=== PATIENT | female | born 1950 | race Caucasian/White ===

== ENCOUNTER → 2016-03-05 | Outpatient (CLI) | payer OTHER ==
[~2016-03-05] MED LIST: ASCO125C3 PO; ASPCH81X PO; ATOR-22 PO; B-CO1CAP5 PO; BIOTCAP2 PO; CHOL100027 PO; CHOL20007 PO; LISI-725 PO; METH1TAB66 PO; MULT-654 PO; MULT-839 PO; OXYB1TAB31 PO; PSYL48.59 PO; TROS20TA3 PO
== END | disposition home or self-care (01) ==
LOC: C.LABBFT 14:31
PROVIDERS: ATTEND Internal Medicine
DX: Z00.00 Encounter for general adult medical examination without abnormal findings (principal)

== ENCOUNTER → 2016-03-16 | Outpatient (CLI) | payer OTHER ==
[2016-03-16 22:13] LABS: INFLUENZA A PCR Neg for Influ A (NEG); INFLUENZA B PCR POS for Influ B (NEG)
== END | disposition home or self-care (01) ==
LOC: C.LABBFT 13:55
PROVIDERS: ATTEND Nurse Practitioner
DX: R68.89 Other general symptoms and signs (principal)

== ENCOUNTER → 2016-04-12 | Outpatient (CLI) | payer OTHER ==
[2016-04-12 17:28] LABS: URINE APPEARANCE CLEAR (CLEAR); URINE BILIRUBIN NEG (NEG); URINE COLOR DK YELLOW; URINE NITRITE NEG (NEG); URINE SPECIFIC GRAVITY 1.008 (1.000-1.030); UROBILINOGEN NEG (NEG)
[2016-04-12 17:30] LABS: MANUAL MICROSCOPIC REQUIRED? NO; REVIEW REQ? NO
== END | disposition home or self-care (01) ==
LOC: C.LABBFT 12:49
PROVIDERS: ATTEND Internal Medicine
DX: R39.9 Unspecified symptoms and signs involving the genitourinary system (principal)

== ENCOUNTER → 2016-04-22 | Outpatient (CLI) | payer OTHER | END | disposition home or self-care (01) | LOC: C.LAB1850 16:24 | PROVIDERS: ATTEND Psychiatry & Neurology Neurology | DX: R41.9 Unspecified symptoms and signs involving cognitive functions and awareness (principal) ==

== ENCOUNTER → 2016-04-29 | Outpatient (CLI) | payer OTHER ==
--- NOTE | 2016-04-29 09:10 | DIAGNOSTIC IMAGING REPORT ---
MRI OF THE BRAIN WITHOUT CONTRAST CLINICAL HISTORY: Difficulty processing information. History of colon cancer. COMPARISON STUDY: None. TECHNIQUE: Utilizing a 1.5 Alessandra magnet and dedicated coil, multiplanar, multiecho imaging of the brain was performed without IV contrast. FINDINGS: There are no areas of restricted diffusion. No acute intracranial hemorrhage, midline shift or mass effect is present. Brain volume is normal for age. Ventricular system is normal. Basilar cisterns are patent. There are no extra-axial collections. Flow-voids for the major intracranial vessels are present. No intracranial masses identified on this unenhanced exam. A few white matter T2 hyperintense foci are present. Calvarial signal is maintained. There is an air-fluid level within the right maxillary sinus. There is mild mucosal thickening of the maxillary sinuses. There is trace fluid within the right mastoid air cells. IMPRESSION: 1. No acute intracranial findings. 2. No intracranial masses on unenhanced exam. 3. Right maxillary sinus air-fluid level which may reflect acute sinusitis. 4. Minimal small vessel disease. Electronically signed by: Vince Garcia M.D. 04/29/2016 9:08 AM Dictated Date/Time: 04/29/2016 9:02 AM
== END | disposition home or self-care (01) ==
LOC: C.MRI 08:05
PROVIDERS: ATTEND Psychiatry & Neurology Neurology
DX: R41.9 Unspecified symptoms and signs involving cognitive functions and awareness (principal)

== ENCOUNTER → 2016-06-29 | Outpatient (CLI) | payer OTHER ==
--- NOTE | 2016-06-30 08:28 | MAMMOGRAPHY REPORT ---
BILATERAL DIGITAL SCREENING MAMMOGRAM WITH CAD: 06/29/2016 CLINICAL HISTORY: Routine screening. Patient has no complaints. TECHNIQUE: Bilateral CC and MLO views were obtained. Current study was also evaluated with a Comput er Aided Detection (CAD) system. COMPARISON: Comparison is made to exams dated: 12/31/2015 mammogram, 06/30/2015 mammogram, 06/30/2015 ul trasound biopsy, 06/23/2015 mammogram, 06/13/2015 mammogram, and 06/12/2014 mammogram - [facility]. BREAST COMPOSITION: There are scattered areas of fibroglandular density in both breasts. FINDINGS: The hub of a Port-A-Cath projects over the right superior pectoralis muscle on the MLO vie w. There is a stable ribbon shaped metallic biopsy marker within the right breast. No new suspicio us mass, architectural distortion or cluster of suspicious microcalcifications is seen. IMPRESSION: ACR BI-RADS CATEGORY 1: NEGATIVE There is no mammographic evidence of malignancy. A 1 year screening mammogram is recommended. The p atient will receive written notification of the results. Approximately 10% of breast cancers are not detected with mammography. A negative mammographic repor t should not delay biopsy if a clinically suggestive mass is present. Aye Guevara M.D. ay/:06/29/2016 15:45:41 Director Decision Support: Mira VALLE(Jessica)(M), [facility] letter sent: Normal 1/2 BI-RADS Code: ACR BI-RADS Category 1: Negative
== END | disposition home or self-care (01) ==
LOC: C.MAMM 10:44
PROVIDERS: ATTEND Obstetrics & Gynecology
DX: Z12.31 Encounter for screening mammogram for malignant neoplasm of breast (principal)

== ENCOUNTER → 2016-07-05 | Outpatient (CLI) | payer OTHER | END | disposition home or self-care (01) | LOC: C.PAPS 17:41 | PROVIDERS: ATTEND Obstetrics & Gynecology | DX: Z01.419 Encounter for gynecological examination (general) (routine) without abnormal findings (principal); R41.9 Unspecified symptoms and signs involving cognitive functions and awareness ==

== ENCOUNTER → 2016-09-01 | Day surgery (SDC) | payer OTHER ==
[2016-08-26 15:20] VITALS: BMI 28.0
[~2016-09-01] VITALS: Ht 170.2 cm; Wt 83.2 kg
[~2016-09-01] MED LIST changes: -CHOL100027 PO; +LIDOCAINE HCL 2% 2 ML VIAL (20MG/ML) ONE; -METH1TAB66 PO; -MULT-839 PO; -OXYB1TAB31 PO; +PROPOFOL IV EMULSION 10 MG/ML 20 ML VIAL IV ONE; +SODIUM CHLORIDE 0.9% 500ML 500 ML IV ONE
[2016-09-01 09:46] VITALS: Ht 170.2 cm; Wt 83.2 kg
--- NOTE | 2016-09-01 10:02 | Endo History and Physical ---
History & Physical Date of Service: Sep 01, 2016. Chief Complaint: History of colon cancer Referring Physician: Dr. Jones History of Present Illness 66 yo CF who presents for colonoscopy secondary to history of colon cancer. Past Medical History Cancer, Hypertension, Other Past Surgical History Hx Cardiac Surgery: No Hx Internal Defibrillator: No Hx Pacemaker: No Hx Abdominal Surgery: No Hx of Implantable Prosthesis: No Hx Post-Op Nausea and Vomiting: No Hx Cancer Surgery: Yes (COLON RESECTION) Hx Thoracic Surgery: No Hx Orthopedic: Yes (LEFT BUNIONECTOMY) Hx Urinary Tract Surgery: No Family History Colon CA Social History Smoking Status: Never Smoker Hx Substance Use: No Hx Alcohol Use: Yes (COMMUNION WINE ONCE MONTHLY) Allergies Coded Allergies: Penicillins (Verified Allergy, Intermediate, RASH, 08/26/16) Sulfa Drugs (Verified Allergy, Intermediate, RASH, 08/26/16) Current Medications Reported Home Medications Medications Dose Route/Sig Max Daily Dose Days Date Category Metamucil (Psyllium) 48.57 % Pow 1 Tsp PO DAILY 09/01/16 Reported Vitamin C Gummies (Ascorbic Acid) 125 Mg Chw 1 Tab PO QAM 08/26/16 Reported Lipitor (Atorvastatin Calcium) 20 Mg Tab 20 Mg PO QPM 08/26/16 Reported Trospium Chloride 20 Mg Tab 1 Tab PO QPM 08/26/16 Reported Vitamin D3 (Cholecalciferol) 2,000 Unit Tab 1 Tab PO QAM 90 08/26/16 Reported Biotin 5000 (Biotin) 5 Mg Cap 1 Cap PO QAM 08/26/16 Reported Vision Plus (Multiple Vitamins W/ Minerals) 1 Cap Cap 1 Cap PO QPM 08/26/16 Reported Zestril (Lisinopril) 20 Mg Tab 20 Mg PO QPM 08/03/13 Reported Super B-Complex (B-Complex W/Biotin & Folic Aci) 1 Cap Cap 1 Cap PO QAM 03/15/13 Reported Aspirin Chewable (Aspirin) 81 Mg Chew 81 Mg PO QPM 03/16/12 Reported Vital Signs Weight (Kilograms): 83.18 Height (Feet): 5 Height (Inches): 7 Date Time Temp Pulse Resp B/P (MAP) Pulse Ox O2 Delivery O2 Flow Rate FiO2 09/01/16 09:49 37.1 84 20 163/83 (109) 98 Room Air Physical Exam General Appearance: WD/WN, no apparent distress Respiratory/Chest: Auscultation: breath sounds normal Cardiovascular: Heart Auscultation: RRR Abdomen: Bowel Sounds: normal Inspection & Palpation: soft, non-distended, no tenderness, guarding & rebound Assessment and Plan Assessment: 66 yo CF who presents for colonoscopy secondary to history of colon cancer. Plan: Proceed with colonoscopy.
--- NOTE | 2016-09-01 11:07 | Discharge Instructions ---
Endoscopy Patient Instructions Date / Procedure(s) Performed Sep 01, 2016. Colonoscopy Allergy Information Coded Allergies: Penicillins (Verified Allergy, Intermediate, RASH, 08/26/16) Sulfa Drugs (Verified Allergy, Intermediate, RASH, 08/26/16) Discharge Date / Findings Sep 01, 2016. Colon polyp Diverticulosis Internal hemorrhoids Medication Instructions Stopped Medication(s): LAST ASPIRIN DOSE 08/30/16 OK to resume all medications today as prescribed Reported Home Medications Medications Dose Route/Sig Max Daily Dose Days Date Category Metamucil (Psyllium) 48.57 % Pow 1 Tsp PO DAILY 09/01/16 Reported Vitamin C Gummies (Ascorbic Acid) 125 Mg Chw 1 Tab PO QAM 08/26/16 Reported Lipitor (Atorvastatin Calcium) 20 Mg Tab 20 Mg PO QPM 08/26/16 Reported Trospium Chloride 20 Mg Tab 1 Tab PO QPM 08/26/16 Reported Vitamin D3 (Cholecalciferol) 2,000 Unit Tab 1 Tab PO QAM 90 08/26/16 Reported Biotin 5000 (Biotin) 5 Mg Cap 1 Cap PO QAM 08/26/16 Reported Vision Plus (Multiple Vitamins W/ Minerals) 1 Cap Cap 1 Cap PO QPM 08/26/16 Reported Zestril (Lisinopril) 20 Mg Tab 20 Mg PO QPM 08/03/13 Reported Super B-Complex (B-Complex W/Biotin & Folic Aci) 1 Cap Cap 1 Cap PO QAM 03/15/13 Reported Aspirin Chewable (Aspirin) 81 Mg Chew 81 Mg PO QPM 03/16/12 Reported Provider Instructions Activity Restrictions - No exercising or heavy lifting for 24 hours. - Do not drink alcohol the day of the procedure. - Do not drive a car or operate machinery until the day after the procedure. - Do not make any important decisions or sign important papers in 24 hours after the procedure. Following Day: - Return to full activity which may include returning to work/school. Diet Start your diet with liquids and light foods (jello, soup, juice, toast). Then eat your usual diet if not nauseated. Treatment For Common After Affects For mild abdominal pain, bloating, or excessive gas: - Rest - Eat lightly - Lie on right side Follow-Up Information Follow-up with DR MILLER as scheduled Anesthesia Information What You Should Know You have had a procedure that required some medicine to reduce anxiety and discomfort. This treatment is called moderate sedation. After receiving the treatment, you may be sleepy, but you will be able to breathe on your own. The effects of the treatment may last for several hours. Follow these instructions along with Activity/Diet recommendations noted above: * Do NOT do anything where dizziness or clumsiness would be dangerous. * Rest quietly at home today, then you can be up and about tomorrow. * Have a responsible person stay with you the rest of today. * You may have had an I.V. today. If so, you may take the dressing off later today. Recommendations Call your doctor if: * Trouble breathing * Continuous vomiting for more than 24 hours * Temperature above 101 degrees * Severe abdominal pain or bloating * Pain not relieved by pain medicine ordered * There is increased drainage or redness from any incision * A large amount of rectal bleeding greater than 2-3 tablespoons. (If you had a polyp/s removed or have hemorrhoids, a small amount of blood - from the rectum is to be expected.) * You have any unanswered questions or concerns. IN THE EVENT OF A SERIOUS EMERGENCY, GO TO THE NEAREST EMERGENCY ROOM Your discharge instructions were prepared by provider Dutch Diaz. Patient Instructions Signature Page Mendy Chacon Patient (or Guardian) Signature/Date: I have read and understand the instructions given to me by my caregivers. Caregiver/RN/Doctor Signature/Date: The above-named patient and/or guardian has received patient instructions on this date. + Original Patient Signature Page (only) stays with chart. Please make copy for patient.
--- NOTE | 2016-09-01 11:15 | GI REPORT ---
Procedure Date: 09/01/2016 10:09 AM Procedure: Colonoscopy Indications: High risk colon cancer surveillance: Personal history of colon cancer Medicines: Monitored Anesthesia Care Complications: No immediate complications. Estimated Blood Loss: Estimated blood loss: none. Procedure: Pre-Anesthesia Assessment: - Prior to the procedure, a History and Physical was performed, and patient medications and allergies were reviewed. The patient's tolerance of previous anesthesia was also reviewed. The risks and benefits of the procedure and the sedation options and risks were discussed with the patient. All questions were answered, and informed consent was obtained. Prior Anticoagulants: The patient has taken aspirin, last dose was 2 days prior to procedure. ASA Grade Assessment: II - A patient with mild systemic disease. After reviewing the risks and benefits, the patient was deemed in satisfactory condition to undergo the procedure. After I obtained informed consent, the scope was passed under direct vision. Throughout the procedure, the patient's blood pressure, pulse, and oxygen saturations were monitored continuously. The Scope was introduced through the anus and advanced to the terminal ileum. The colonoscopy was performed without difficulty. The patient tolerated the procedure well. The quality of the bowel preparation was good. The terminal ileum, ileocecal valve, appendiceal orifice, and rectum were photographed. Findings: A 3 mm polyp was found in the cecum. The polyp was sessile. The polyp was removed with a cold biopsy forceps. Resection and retrieval were complete. Multiple small-mouthed diverticula were found in the sigmoid colon. There was evidence of a prior end-to-side colo-colonic anastomosis in the sigmoid colon. This was patent and was characterized by healthy appearing mucosa. The anastomosis was traversed. Non-bleeding internal hemorrhoids were found during retroflexion. The hemorrhoids were small. Impression: - One 3 mm polyp in the cecum, removed with a cold biopsy forceps. Resected and retrieved. - Diverticulosis in the sigmoid colon. - Patent end-to-side colo-colonic anastomosis, characterized by healthy appearing mucosa. - Non-bleeding internal hemorrhoids. Recommendation: - Resume previous diet. - Continue present medications. - Repeat colonoscopy for surveillance based on pathology results. - Return to primary care physician as previously scheduled. Dutch Diaz DO 09/01/2016 11:15:13 AM This report has been signed electronically. Note Initiated On: 09/01/2016 10:09 AM I attest to the content of the Intraoperative Record and orders documented therein, exceptions below
[2016-09-01 11:47] VITALS: BP 148/81; PULSE 76; O2SAT 98
--- NOTE | 2016-09-01 11:50 | Anesthesiology Progress Note ---
Anesthesia Post Op Note Date & Time Sep 01, 2016 at 11:50 Vital Signs Pain Intensity: 0 Vital Signs Past 12 Hours Date Time Temp Pulse Resp B/P (MAP) Pulse Ox O2 Delivery O2 Flow Rate FiO2 09/01/16 11:47 76 20 148/81 (103) 98 Room Air 09/01/16 11:26 72 10 154/81 (105) 98 Room Air 09/01/16 11:11 70 10 112/59 (76) 97 Room Air 09/01/16 09:49 37.1 84 20 163/83 (109) 98 Room Air Notes Mental Status: alert / awake / arousable, participated in evaluation Pt Amnestic to Procedure: Yes Nausea / Vomiting: adequately controlled Pain: adequately controlled Airway Patency, RR, SpO2: stable & adequate BP & HR: stable & adequate Hydration State: stable & adequate Anesthetic Complications: no major complications apparent
== END | disposition home or self-care (01) ==
LOC: C.GI 09:27
PROVIDERS: ATTEND Internal Medicine
DX: Z12.11 Encounter for screening for malignant neoplasm of colon (principal); Z85.038 Personal history of other malignant neoplasm of large intestine; D12.0 Benign neoplasm of cecum; I10 Essential (primary) hypertension; K57.30 Diverticulosis of large intestine without perforation or abscess without bleeding; Z88.2 Allergy status to sulfonamides; Z88.0 Allergy status to penicillin; Z98.890 Other specified postprocedural states; Z90.49 Acquired absence of other specified parts of digestive tract; Z68.28 Body mass index [BMI] 28.0-28.9, adult; Z80.0 Family history of malignant neoplasm of digestive organs

== ENCOUNTER → 2016-11-08 | Outpatient (CLI) | payer OTHER ==
[~2016-11-08] MED LIST changes: -LIDOCAINE HCL 2% 2 ML VIAL (20MG/ML) ONE; -PROPOFOL IV EMULSION 10 MG/ML 20 ML VIAL IV ONE; -SODIUM CHLORIDE 0.9% 500ML 500 ML IV ONE
--- NOTE | 2016-11-08 13:32 | DIAGNOSTIC IMAGING REPORT ---
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 No evidence pneumothorax. Lungs are clear. Diaphragms smooth. IMPRESSION: No acute process with the lungs considered clear. Central catheter in superior vena cava. The above report was generated using voice recognition software. It may contain grammatical, syntax or spelling errors. Electronically signed by: Atilio Evans M.D. 11/08/2016 1:31 PM Dictated Date/Time: 11/08/2016 1:30 PM
[2016-11-08 14:44] LABS: BASO % 0.3 %; BASO ABS # 0.02 K/uL (0-0.2); COMPLETE YES; EOS % 0.6 %; HEMATOCRIT 38.4 % (37-47); IG% 0.2 %; LYMPH % 31.9 %; LYMPH ABS # 2.04 K/uL (1.2-3.4); MEAN CELL VOLUME 92.5 fL (80-100); MEAN CORPUSCULAR HEMOGLOBIN 31.3 pg (25-34); MEAN CORPUSCULAR HGB CONC 33.9 g/dl (32-36); MEAN PLATELET VOLUME 10.8 fL (7.4-10.4); MONO % 6.1 %; NEUT % 60.9 %; PLATELET COUNT 206 K/uL (130-400); RED BLOOD COUNT 4.15 M/uL (4.2-5.4); WHITE BLOOD COUNT 6.39 K/uL (4.8-10.8)
[2016-11-08 15:10] LABS: BLOOD UREA NITROGEN 14 mg/dl (7-18); BUN/CREATININE RATIO 16.5 (10-20); CALCIUM 9.6 mg/dl (8.5-10.1); CARBON DIOXIDE 31 mmol/L (21-32); CHLORIDE 104 mmol/L (98-107); CREATININE 0.85 mg/dl (0.60-1.20); GLUCOSE 89 mg/dl (70-99); POTASSIUM 4.3 mmol/L (3.5-5.1); SODIUM 139 mmol/L (136-145)
== END | disposition home or self-care (01) ==
LOC: C.RAD1850 12:42
PROVIDERS: ATTEND Surgery
DX: Z01.811 Encounter for preprocedural respiratory examination (principal); Z01.812 Encounter for preprocedural laboratory examination; C18.9 Malignant neoplasm of colon, unspecified; Z95.828 Presence of other vascular implants and grafts

== ENCOUNTER → 2016-11-26 | Day surgery (SDC) | payer OTHER ==
[2016-11-10 14:05] VITALS: Ht 170.2 cm; Wt 83.2 kg
[~2016-11-26] VITALS: Ht 170.2 cm; Wt 83.2 kg
[~2016-11-26] MED LIST changes: -ASCO125C3 PO; +ATROPINE SULFATE 0.1 MG/ML 5ML SYR IV PRN; +EpHEDrine SULFATE INJ 50 MG/ML AMP IV PRN; +FENTANYL CITRATE INJ 50 MCG/1 ML 2 ML VIAL IV PRN; +FENTANYL CITRATE INJ 50 MCG/1 ML 2 ML VIAL ONE; +LACTATED RINGER'S 1000ML 1,000 ML IV SCH; +LIDOCAINE HCL 1% 20 ML VIAL ONE; +MIDAZOLAM HCL 1 MG/ML 2ML VIAL ONE; +ONDANSETRON INJ 2 MG/ML 2 ML VIAL IV PRN; +PROPOFOL IV EMULSION 10 MG/ML 20 ML VIAL IV ONE; +SODIUM CHLORIDE 0.9% 1000ML 1,000 ML IV SCH
--- NOTE | 2016-11-26 06:26 | History & Physical Bridge Note ---
H&P Re-Evaluation Bridge Note: I have examined the patient, reviewed the History & Physical and in the interval since the performance of the History & Physical I have noted the following changes of clinical significance: No changes noted SO at bedside
--- NOTE | 2016-11-26 07:29 | Discharge Instructions-SurgCtr ---
Discharge Instructions Date of Service Nov 26, 2016. Visit Reason for Visit: Colon Ca; Port In Place Discharge Discharge Diagnosis / Problem: Colon CA; Port in Place Discharge Goals Goal(s): Decrease discomfort, Improve function Activity Recommendations Activity Limitations: as noted below Lifting Limitations: no more than 10 pounds Exercise/Sports Limitations: until after follow-up appointment May Resume Sexual Activity: after follow-up appointment Shower/Bathe: tomorrow Driving or Machine Use: resume 1 day after discharge Anesthesia . Post Anesthesia Instructions: If you have had General Anesthesia or IV Sedation: * Do not drive today. * Resume driving when surgeon permits. * Do not make important decisions or sign legal documents today. * Call surgeon for: 1. Temperature elevations greater than 101 degrees F. 2. Uncontrollable pain. 3. Excessive bleeding. 4. Persistent nausea and vomiting. 5. Medication intolerance (nausea, vomiting or rash). * For nausea and vomiting use only clear liquids such as: tea, soda, bouillon until nausea subsides, then gradually increase diet as tolerated. * If you have any concerns or questions, call your surgeon's office. If physician is unavailable and it is an emergency, call 911 or go to the nearest emergency room. . Instructions / Follow-Up Instructions / Follow-Up You may take over the counter pain medication if you have any pain or discomfort. Please leave your dressings on until tomorrow morning. Tomorrow morning you may remove the dressing and shower as usual. Please follow-up with Dr. Alvarez in the office in 1 week. Please call the office with any questions or concerns. Diet Recommendations Home Diet: no limitations, resume previous diet Procedures Procedures Performed: Infusaport Removal Pending Studies Studies pending at discharge: no Medical Emergencies . Who to Call and When: Medical Emergencies: If at any time you feel your situation is an emergency, please call 911 immediately. . Non-Emergent Contact Non-Emergency issues call your: Primary Care Provider, Surgeon Call Non-Emergent contact if: temperature is above 101.5, your pain is not controlled, wound has increased drainage, wound has increased redness . . "Provider Documentation" section prepared by Tamara Chappell. .
--- NOTE | 2016-11-26 07:30 | [facility] Operative Report ---
Operative Report Operative Date Nov 26, 2016. Pre-Operative Diagnosis Colon Cancer, Port in Place Post-Operative Diagnosis Same Procedure(s) Performed Infusaport Removal Surgeon Dr Alvarez Heel Breaster Surgeon(s) Michael Chappell PA-C Estimated Blood Loss Minimal Findings as preop Specimens A: Infusaport Indications exhausted use I attest to the content of the Intraoperative Record and any orders documented therein. Any exceptions are noted below.
--- NOTE | 2016-11-26 07:34 | Anesthesia Progress Nt - [facility] ---
Anesthesia Post Op Note Date & Time Nov 26, 2016 at 07:34 Vital Signs Pain Intensity: 0 Vital Signs Past 12 Hours Date Time Temp Pulse Resp B/P (MAP) Pulse Ox O2 Delivery O2 Flow Rate FiO2 11/26/16 07:29 36.8 71 16 135/72 (93) 97 Room Air 11/26/16 06:32 36.6 85 16 150/89 (109) 99 Room Air Notes Mental Status: alert / awake / arousable, participated in evaluation Pt Amnestic to Procedure: Yes Nausea / Vomiting: adequately controlled Pain: adequately controlled Airway Patency, RR, SpO2: stable & adequate BP & HR: stable & adequate Hydration State: stable & adequate Anesthetic Complications: no major complications apparent
[2016-11-26 07:50] VITALS: BP 134/78; PULSE 67; TEMP 36.8; O2SAT 100
--- NOTE | 2016-11-26 08:32 | OPERATIVE REPORT ---
DATE OF OPERATION: 11/26/2016 PREOPERATIVE DIAGNOSIS: Exhausted use of A-port in the right internal jugular insertion site. POSTOPERATIVE DIAGNOSIS: Same. PROCEDURE: Removal. SURGEON: Dr. Alvarez. SUMMARY: The patient was brought in the operating room in a supine position. IV sedation was given. The right chest wall and neck was prepped with Betadine solution and properly draped. The A-Port was above the right breast, actually had migrated down from the initial incision site which was about an inch away or so, therefore another incision was made almost at the cephalic groove with local anesthesia 1% Xylocaine without epinephrine, used approximately 8 mL. Incision was made, deepened through subcutaneous tissue. We got onto the reservoir, which was fully encapsulated, there was no evidence of any infection. We entered the pseudocapsule then elevated the reservoir out. There was 1 suture [address], which we divided and the A-Port came out very easily holding pressure in the internal jugular area on the right pretty much the whole time as we checked the wound which was pretty dry. Cautery was used and closed the wound in a running fashion using 3-0 nylon vertical mattress. Dressing was applied, 2 x 2 and Op-Site. The procedure was tolerated well by the patient. Minimal blood loss. The patient was taken to recovery room in good condition. We did check the catheter as far as the length, it was completely removed. I attest to the content of the Intraoperative Record and any orders documented therein. Any exception s are noted below.
== END | disposition home or self-care (01) ==
LOC: X.SURG 06:09
PROVIDERS: ATTEND Surgery
DX: C18.9 Malignant neoplasm of colon, unspecified (principal); Z95.828 Presence of other vascular implants and grafts; I10 Essential (primary) hypertension; E78.5 Hyperlipidemia, unspecified; Z88.0 Allergy status to penicillin; Z88.2 Allergy status to sulfonamides; Z98.890 Other specified postprocedural states; Z79.82 Long term (current) use of aspirin; Z79.899 Other long term (current) drug therapy; Z82.49 Family history of ischemic heart disease and other diseases of the circulatory system; Z82.0 Family history of epilepsy and other diseases of the nervous system; Z83.3 Family history of diabetes mellitus; Z82.3 Family history of stroke

== ENCOUNTER → 2016-12-02 | Outpatient (CLI) | payer OTHER ==
[~2016-12-02] MED LIST changes: -ATROPINE SULFATE 0.1 MG/ML 5ML SYR IV PRN; -EpHEDrine SULFATE INJ 50 MG/ML AMP IV PRN; -FENTANYL CITRATE INJ 50 MCG/1 ML 2 ML VIAL IV PRN; -FENTANYL CITRATE INJ 50 MCG/1 ML 2 ML VIAL ONE; -LACTATED RINGER'S 1000ML 1,000 ML IV SCH; -LIDOCAINE HCL 1% 20 ML VIAL ONE; -MIDAZOLAM HCL 1 MG/ML 2ML VIAL ONE; -ONDANSETRON INJ 2 MG/ML 2 ML VIAL IV PRN; -PROPOFOL IV EMULSION 10 MG/ML 20 ML VIAL IV ONE; -SODIUM CHLORIDE 0.9% 1000ML 1,000 ML IV SCH
[2016-12-02 13:07] LABS: CHOLESTEROL/HDL RATIO 1.6
== END | disposition home or self-care (01) ==
LOC: C.LABPBG 09:18
PROVIDERS: ATTEND Internal Medicine
DX: M85.80 Other specified disorders of bone density and structure, unspecified site (principal); E78.5 Hyperlipidemia, unspecified; R73.9 Hyperglycemia, unspecified

== ENCOUNTER → 2017-06-30 | Outpatient (CLI) | payer OTHER ==
--- NOTE | 2017-07-01 14:18 | MAMMOGRAPHY REPORT ---
BILATERAL DIGITAL SCREENING MAMMOGRAM TOMOSYNTHESIS WITH CAD: 06/30/2017 CLINICAL HISTORY: Routine screening. Patient has no complaints. TECHNIQUE: Breast tomosynthesis in addition to standard 2D mammography was performed. Current study was also evaluated with a Computer Aided Detection (CAD) system. COMPARISON: Comparison is made to exams dated: 06/29/2016 mammogram, 12/31/2015 mammogram, 06/30/2015 shad mogram, 06/23/2015 ultrasound, and 06/13/2015 mammogram - [facility]. BREAST COMPOSITION: There are scattered areas of fibroglandular density in both breasts. FINDINGS: There is an asymmetry with possible associated architectural distortion seen within the rig ht lateral posterior breast on the cc view only, which may represent normal overlapping fibroglandula r tissue although spot compression tomosynthesis views and possible ultrasound are recommended for fu rther evaluation. Additionally, there is a new round 5 mm mass seen within the right superior graphics coordinator ior breast on the MLO view only, which is located at the site of a prior port catheter and could repr esent changes related to port removal, however, additional imaging evaluation with spot compression t omosynthesis views and possible ultrasound is recommended. The remainder of both breasts are stable compared to prior exams, without suspicious masses, calcific ations, or areas of architectural distortion noted. A biopsy marker clip is again noted within the r ight upper outer breast. IMPRESSION: ACR BI-RADS CATEGORY 0: INCOMPLETE EVALUATION: NEED ADDITIONAL IMAGING EVALUATION Right breast asymmetry and right breast mass, for which additional imaging evaluation is recommended. The patient will be called to schedule an appointment. Approximately 10% of breast cancers are not detected with mammography. A negative mammographic report should not delay biopsy if a clinically suggestive mass is present. Acacia Solomon M.D. ah/:06/30/2017 16:09:15 Wool Washing Machine Operator: Jeannie Moyer RT(R)(M), [facility] letter sent: Addl Imaging 0 BI-RADS Code: ACR BI-RADS Category 0: Incomplete Evaluation: Need Additional Imaging Evaluation
== END | disposition home or self-care (01) ==
LOC: C.MAMM 10:31
PROVIDERS: ATTEND Obstetrics & Gynecology
DX: Z12.31 Encounter for screening mammogram for malignant neoplasm of breast (principal)

== ENCOUNTER → 2017-07-15 | Outpatient (CLI) | payer OTHER ==
--- NOTE | 2017-07-15 15:14 | MAMMOGRAPHY REPORT ---
UNILATERAL RIGHT DIGITAL DIAGNOSTIC MAMMOGRAM TOMOSYNTHESIS AND TARGETED RIGHT ULTRASOUND: 07/15/2017 CLINICAL HISTORY: Callback from screening mammogram for possible right breast architectural distortio n and nodular right breast asymmetry. TECHNIQUE: Breast tomosynthesis in addition to standard 2D mammography was performed. Spot compress ion right CC and MLO 2D and tomosynthesis images were obtained. COMPARISON: Comparison is made to exams dated: 06/30/2017 mammogram, 06/29/2016 mammogram, 06/13/2015 [facility] mogram, 06/12/2014 mammogram, 06/11/2013 mammogram, and 06/08/2012 mammogram - [facility] [address]. BREAST COMPOSITION: There are scattered areas of fibroglandular density in the right breast. FINDINGS: The previously described asymmetry with possible associated architectural distortion efface s on the additional spot compression view. The asymmetry has the appearance of normal fibroglandular tissue on the additional tomosynthesis images, without a suspicious mass or architectural distortion seen. Additionally, the asymmetry appears similar to multiple prior exams including the 2008 exam o n the additional images. Spot compression views demonstrate a persistent round 5 mm mass within the right superior posterior breast seen on the MLO view, for which ultrasound was performed. Targeted ultrasound was performed of the right superior breast in the region of the mammographic mass . In the right breast at 1:00, 12 cm from the nipple, there is a round circumscribed anechoic 5 x 5 mm mass. This is shown to be underlying the scar from the patient's port removal and is benign and c onsistent with a cyst and likely represents an oil cyst related to the prior surgery. Targeted ultra sound of the right upper outer quadrant in the region of the asymmetry demonstrates no suspicious mas ses or other suspicious sonographic abnormalities. IMPRESSION: ACR BI-RADS CATEGORY 2: BENIGN, TARGETED ULTRASOUND ACR BI-RADS CATEGORY 2: BENIGN 1. The right lateral breast asymmetry effaces to a baseline appearance on the additional images, and is benign and compatible with normal fibroglandular tissue. 2. Benign 5 mm cyst in the right 1:00 breast underlying the scar from recent port removal. This cor responds with the new mammographic mass and is compatible with an oil cyst related to the prior surge ry. There is no mammographic or targeted sonographic evidence of malignancy. A 1 year screening mammogram is recommended. The patient has been verbally notified of the results. Approximately 10% of breast cancers are not detected with mammography. A negative mammographic report should not delay biopsy if a clinically suggestive mass is present. Acacia Solomon M.D. ah/:07/15/2017 12:20:09 University President: Alfonso PETERSON)(Giuliana), [facility] letter sent: Normal 1/2 BI-RADS Code: ACR BI-RADS Category 2: Benign Ultrasound BI-RADS: ACR BI-RADS Category 2: Benign
== END | disposition home or self-care (01) ==
LOC: C.MAMM 10:36
PROVIDERS: ATTEND Obstetrics & Gynecology
DX: N64.89 Other specified disorders of breast (principal); N63.12 Unspecified lump in the right breast, upper inner quadrant